=== PATIENT | female | born 1975 | race Caucasian/White ===

== ENCOUNTER → 2021-06-01 13:36 | Outpatient (CLI) | payer OTHER, SELFPAY | PROVIDERS: Visit Provider Nurse Practitioner | DX: Z20.822 Contact with and (suspected) exposure to COVID-19 (principal) ==

== ENCOUNTER 2022-07-27 05:05 | Emergency (ER) | payer OTHER, SELFPAY ==
--- NOTE | 2022-07-27 05:06 | ECG_ITS ---
APPROVED REPORT Exam: Resting ECG HR:119 bpm ECG Measurements Heart Rate 119 AXES CO 165 P 70 QRSd 88 QRS 64 QT 339 T 63 QTc 410 Conclusion SINUS TACHYCARDIA NONSPECIFIC ST & T-WAVE ABNORMALITY ABNORMAL RHYTHM ECG UNCONFIRMED REPORT Electronically signed by : Perry Schneider MD 07/27/2022 17:19:05
[2022-07-27 05:11] VITALS: BP 172/93; PULSE 120; RESP 18; TEMP 36.9; O2SAT 98; BMI 40.5
[2022-07-27 05:12] VITALS: BMI 40.5
--- NOTE | 2022-07-27 05:12 | XR_ITS ---
PROCEDURE INFORMATION: Exam: XR Chest Exam date and time: 07/27/2022 5:12 AM Age: 47 years old Clinical indication: Other: Tachycardia; Additional info: Heart racing TECHNIQUE: Imaging protocol: Radiologic exam of the chest. Views: 2 views. COMPARISON: No relevant prior studies available. FINDINGS: Lungs: Mild interstitial prominence and chronic granulomatous disease. No acute infiltrate. Pleural spaces: No pleural effusion. Heart/Mediastinum: Normal configuration of the heart. Bones/joints: Mild degenerative change. IMPRESSION: Mild interstitial prominence and chronic granulomatous disease.
[2022-07-27 05:25] LABS: Microscopic, Urine URINE MICROSCOPIC (MICROSCOPIC)
[2022-07-27 05:27] LABS: Basophils # 0.1 K/mm3 (0-0.2); Basophils % 0.7 % (0.1-2.0); Eosinophils # 0.4 K/mm3 (0.0-0.4); Eosinophils % 2.9 % (0.1-12.0); Hematocrit 29.9 % (37.0-47.0); Hemoglobin 9.9 g/dL (12.2-16.2); Lymphocytes # 4.5 K/mm3 (0.7-4.5); Lymphocytes % 37.1 % (10-50); Mean Corpuscular HGB Conc 33.2 g/dL (31.8-35.4); Mean Corpuscular Hemoglobin 29.4 pg (27.0-31.2); Mean Corpuscular Volume 88.7 fl (81-99); Mean Platelet Volume 7.9 fl (7.4-10.4); Monocytes # 0.7 K/mm3 (0.1-1.0); Monocytes % 6.1 % (1.7-9.3); Neutrophils # 6.4 K/mm3 (1.8-7.8); Neutrophils % 53.2 % (37.0-80.0); Platelet Count 384 K/mm3 (142-424); Red Blood Count 3.38 M/mm3 (4.20-5.40); Red Cell Distribution Width 15.7 % (11.5-17.5); White Blood Count 12.1 K/mm3 (4.8-10.8)
[2022-07-27 05:28] LABS: Bilirubin,Urine Negative (Negative); Blood, Urine 2+ (Negative); Color,Urine YELLOW (Yellow); Glucose,Urine (UA) Negative (Negative); Ketones,Urine Negative (Negative); Leukocyte Esterase,Urine Negative (Negative); Nitrate,Urine Negative (Negative); PH,Urine 6.5 (5.0-8.5); Protein,Urine TRACE (Negative); Urobilinogen,Urine 0.2 EU/dl (0.2)
[2022-07-27 05:29] LABS: Appearance,Urine Slightly Cloudy (Clear)
[2022-07-27 05:30] VITALS: BP 142/80; PULSE 103; RESP 17; O2SAT 99
[2022-07-27 05:38] LABS: Alanine Aminotransferase 26 U/L (12-78); Albumin/Globulin Ratio 1.4 (1.1-1.8); Alkaline Phosphatase 95 U/L (38-126); Anion Gap 12.2 mEq/L (5-15); Aspartate Amino Transferase 27 U/L (14-36); Bilirubin,Total 0.4 mg/dl (0.2-1.3); Blood Urea Nitrogen 13 mg/dl (7-17); Calcium 8.2 mg/dl (8.4-10.2); Carbon Dioxide 27 mmol/L (22.0-30.0); Chloride 100 mmol/L (98-107); Creatinine Clearance Estimated 200 mL/min (50-200); Estimated Glomerular Filt Rate 108 ml/min (>60); GFR (African American) 131 ML/MIN (>60); Globulin 2.9 g/dL (1.3-3.2); Glucose 124 mg/dl (74-100); Potassium 3.2 mmoL/L (3.5-5.1); Sodium 136 mmol/L (136-145); Total Protein,Serum 6.9 g/dl (6.3-8.2)
[2022-07-27 05:38] LABS: Urine Pregnancy, HCG Qual. Negative (Negative)
[2022-07-27 05:42] LABS: Amorphous Sediment,Urine 1+ /lpf; Bacteria,Urine 1+ /lpf; WBC,Urine Occasional #/hpf (0-3)
[2022-07-27 05:55] LABS: Free T4 (Free Thyroxine) 1.25 ng/dl (0.78-2.19)
[2022-07-27 06:00] VITALS: BP 128/64; PULSE 93; RESP 14; O2SAT 97
[2022-07-27 06:10] LABS: Thyroid Stimulating Hormone 2.78 uIU/mL (0.465-4.68)
[2022-07-27 06:19] LABS: Troponin I < 0.01 ng/ml (0.00-0.034)
--- NOTE | 2022-07-27 06:23 | HMH.EDARPALP ---
Discharge Plan Disposition Patient Disposition: Home, Self-Care Prescriptions Prescriptions: New metoprolol succinate 25 mg tablet extended release 24 hr 25 mg PO DAILY Qty: 30 0RF No Action multivitamin Tablet 1 tab PO DAILY Referrals Follow up/Referrals: Provider,MD Sherly [Primary Care Provider] - See instructions Joseph Boone MD [Staff Physician] - See instructions Clinical Impressions Clinical Impression: Sinus tachycardia, Anemia Discharge ED Provider: Johnathan (ED)Chris Arrhythmia/Palpitations HPI General Chief Complaint: Arrhythmia/Palpitations Stated Complaint: heart racing Time Seen by Provider: 07/27/22 05:20 Mode of Arrival: Ambulatory Source of Information: Patient, Spouse and Medical Record Limitations: No Limitations History of Present Illness HPI narrative: pt with fast hr over the last day w/o chest pain ,syncope and no known medical problems complaint: rapid heart beat Onset (ago): day(s) Duration: intermittent Severity: moderate Associated symptoms: denies other symptoms Related Data Home Medications Medication Instructions Recorded Confirmed multivitamin 1 tab PO DAILY Supplement 07/27/22 07/27/22 Previous Rx's Medication Instructions Recorded metoprolol succinate 25 mg 25 mg PO DAILY #30 tabs 07/27/22 tablet,extended release 24 hr Allergies Allergy/AdvReac Type Severity Reaction Status Date / Time CODEINE Allergy Unknown PT STATES Uncoded 04/30/17 14:32 JUST DOES NOT REMEMBER THINGS [facility] Disclaimer: The information contained in this section may have been updated after the patient was seen, as this information can be updated by other users. Social History Smoking Status: Never smoker alcohol intake: never current occupational status: employed Travel in the last 8 weeks: None ROS Obtained: Yes All systems reviewed & no additional complaints except as documented Physical Exam General General appearance: alert and obese Head Head exam: normocephalic Eye Eye exam: Present PERRL and EOMI; Absent scleral icterus ENT ENT exam: Present mucous membranes moist Neck Neck exam: Present trachea midline Respiratory Respiratory exam: Absent respiratory distress Cardiovascular Cardiovascular exam: Present tachycardia Abdominal Exam Abdominal exam: Present soft Extremities Exam Extremities exam: Absent tenderness Neurological Exam Neurological exam: Present alert, oriented X3 and CN II-XII intact; Absent motor sensory deficit Psychiatric Psychiatric exam: Present normal affect Skin Skin exam: Absent rash Medical Decision Making Medical Records Medical records reviewed: Yes I reviewed the patient's medical records. Denilson Inquiry Pt receiving controlled substance: No Vital Signs: 07/27/22 05:11 07/27/22 05:30 07/27/22 06:00 Temperature 98.5 F Temperature Source Oral Pulse Rate 103 H 93 H Pulse Rate [Apical] 120 H Respiratory Rate 18 17 14 Blood Pressure 142/80 H 128/64 Blood Pressure [Right Arm] 172/93 H Blood Pressure Mean [Right Arm] 119 Blood Pressure Source [Right Arm] Automatic Cuff Blood Pressure Position [Right Arm] Sitting 02 Sat by Pulse Oximetry 98 99 97 Oxygen Delivery Method Room Air Room Air Room Air Lab Data Lab results reviewed: Yes I reviewed the patient's lab results. Lab Results 07/27/22 05:05: Urine Color Yellow, Urine Appearance Slightly cloudy, Urine pH 6.5, Ur Specific [place] 1.020, Urine Protein Trace, Urine Glucose (UA) Negative, Urine Ketones Negative, Urine Blood 2+, Urine Nitrate Negative, Urine Bilirubin Negative, Urine Urobilinogen 0.2, Ur Leukocyte Esterase Negative, Urine RBC 3-5, Urine WBC Occasional, Amorphous Sediment 1+, Urine Bacteria 1+ 07/27/22 05:05: Urine HCG, Qual Negative 07/27/22 05:15: WBC 12.1 H, RBC 3.38 L, Hgb 9.9 L, Hct 29.9 L, MCV 88.7, MCH 29.4, MCHC 33.2, RDW 15.7, Plt Count 384, MPV 7.9, Neut % (Auto) 53.2, Lym
[2022-07-27 06:30] VITALS: BP 150/81; PULSE 114; RESP 19; O2SAT 99
[2022-07-27 06:53] VITALS: BP 150/80; PULSE 110; RESP 18; TEMP 36.6; O2SAT 98
== END 2022-07-27 06:58 | disposition home or self-care (01) ==
PROVIDERS: Emergency Provider Emergency Medicine
DX: R00.2 Palpitations (principal)
CPT/HCPCS: 71046; 80053; 81001; 81025; 84439; 84443; 84484; 85025; 93005; 96361; 99284; 99285

== ENCOUNTER 2023-01-28 17:53 | Emergency (ER) | payer OTHER, SELFPAY ==
[2023-01-28 18:00] VITALS: BP 176/98; PULSE 82; RESP 18; TEMP 36.8; O2SAT 99; BMI 41.3
--- NOTE | 2023-01-28 18:06 | EXP.UTC ---
Discharge Plan Disposition Patient Disposition: Home, Self-Care Condition: Good Prescriptions Prescriptions: New ciprofloxacin HCl 0.3 % drops See Rx Instructions .ROUTE .COMPLEX Qty: 5 0RF Rx Instructions: put 1 drp in right eye every 2hr x2days; then 4 times/day x5days amoxicillin [amoxicillin] 875 mg tablet 875 mg PO Q12H Qty: 20 0RF No Action multivitamin Tablet 1 tab PO DAILY metoprolol succinate 25 mg tablet extended release 24 hr 25 mg PO DAILY Qty: 30 0RF Referrals Follow up/Referrals: Perry Schneider MD [Primary Care Provider] - See instructions Activity Restrictions/Add. Instructions Additional Instructions/Restrictions: Use the eye drop as directed. Strict hand washing in the house hold, because conjunctivitis is very contagious. Follow up with your regular doctor. GO TO THE ER FOR ANY WORSENING SYMPTOMS OR CONCERNS Clinical Impressions Clinical Impression: Conjunctivitis of right eye, Sinusitis Instructions Patient Instructions: How to Instill Eye Drops, Conjunctivitis, DI for Conjunctivitis Discharge ED Provider: Ron Garcia [facility] General Stated complaint: right eye infected Time Seen by Provider: 01/28/23 18:06 History of Present Illness Provider Complaint: She states that for the past 5 days she has had right eye irritation and drainage. She denies any injury or foreign body. She states that her vision is essentially normal in the eye. She denies eye pain too. Related Data Home Medications Medication Instructions Recorded Confirmed multivitamin 1 tab PO DAILY Supplement 07/27/22 07/27/22 Previous Rx's Medication Instructions Recorded metoprolol succinate 25 mg 25 mg PO DAILY #30 tabs 07/27/22 tablet,extended release 24 hr amoxicillin 875 mg tablet 875 mg PO Q12H #20 tabs 01/28/23 ciprofloxacin HCl 0.3 % eye drops See Rx Instructions ophthalmic 01/28/23 (eye) .COMPLEX #5 mL Allergies Allergy/AdvReac Type Severity Reaction Status Date / Time CODEINE Allergy Mild PT STATES Uncoded 01/28/23 18:31 JUST DOES NOT REMEMBER THINGS [facility] Disclaimer: The information contained in this section may have been updated after the patient was seen, as this information can be updated by other users. Social History Smoking Status: Never smoker alcohol intake: never current occupational status: employed Travel in the last 8 weeks: None ROS Obtained: Yes All systems reviewed & no additional complaints except as documented Constitutional Constitutional: Denies chills and Denies fever(s) Eyes Eyes: Reports as per HPI and Reports eye discharge ENT Ears, Nose, Mouth, and Throat: Denies dizziness, Denies otalgia, Reports nasal congestion, Reports nasal discharge and Reports sore throat Cardiovascular Cardiovascular: Denies chest pain Respiratory Respiratory: Denies shortness of breath, Denies chest congestion, Denies cough, Denies stridor and Denies wheezing Gastrointestinal Gastrointestingal: Denies nausea or vomiting Musculoskeletal Musculoskeletal: Reports system reviewed and no additional complaints, except as documented and Denies arthralgias Integumentary/Breasts Skin/Breast: Denies rash Neurologic Neurologic: Denies dizziness and Denies paresthesias Allergic/Immunologic Allergic/Immunologic: Denies wheezing Physical Exam General General appearance: alert and in no apparent distress Head Head exam: atraumatic, normocephalic and normal inspection Eye Eye exam: Present PERRL and EOMI Expanded Eye Exam Eyelids: left: normal inspection and right: erythema Pupils: Left: size (3mm), Right: size (3mm) and Bilateral: regular, round and reactive Sclera/Conjunctival: left: normal inspection and right: injection and exudate ENT ENT exam: Present normal exam, normal oropharynx, mucous membranes moist, TM's normal bilaterally and normal external ear exam
[2023-01-28 18:49] VITALS: BP 176/98; PULSE 82; RESP 18; TEMP 36.8; O2SAT 99
== END 2023-01-28 18:49 | disposition home or self-care (01) ==
PROVIDERS: Emergency Provider Nurse Practitioner Family; PCP Internal Medicine Adolescent Medicine
DX: H10.31 Unspecified acute conjunctivitis, right eye (principal)
CPT/HCPCS: 99204; 99212; G0463

== ENCOUNTER 2023-02-02 13:21 | Emergency (ER) | payer OTHER, SELFPAY ==
[2023-02-02 13:23] VITALS: BP 156/94; PULSE 104; RESP 18; TEMP 36.7; O2SAT 99; BMI 37.8
[2023-02-02 13:30] VITALS: BP 167/100; PULSE 102; RESP 20; O2SAT 98
[2023-02-02 14:01] VITALS: BP 141/80; PULSE 90; RESP 18; O2SAT 96
[2023-02-02 14:30] VITALS: BP 144/92; PULSE 98; RESP 20; O2SAT 96
--- NOTE | 2023-02-02 14:53 | PC.NURSE ---
Visual Acuity Both: 20/2 Left: 20/25 Right: 20/40
--- NOTE | 2023-02-02 14:57 | PC.NURSE ---
DR MANJARREZ AT BEDSIDE
[2023-02-02 15:01] VITALS: BP 149/78; PULSE 85; RESP 20; O2SAT 99
--- NOTE | 2023-02-02 15:04 | CT_ITS ---
PROCEDURE INFORMATION: Exam: CT Head Without Contrast Exam date and time: 02/02/2023 3:23 PM Age: 47 years old Clinical indication: Visual disturbance; Additional info: Right-sided visual disturbance TECHNIQUE: Imaging protocol: Computed tomography of the head without contrast. Radiation optimization: All CT scans at this facility use at least one of these dose optimization techniques: automated exposure control; mA and/or kV adjustment per patient size (includes targeted exams where dose is matched to clinical indication); or iterative reconstruction. REPORTING DATA: Count of CT and Cardiac NM exams in prior 12 months: This patient has received 0 known CTs and 0 known cardiac nuclear medicine studies in the 12 months prior to the current study. COMPARISON: No relevant prior studies available. FINDINGS: Brain: Normal. No hemorrhage. No mass effect or midline shift. Cortical sulci and white matter are unremarkable for age. Cerebral ventricles: Unremarkable for age. Paranasal sinuses: Visualized sinuses are unremarkable. No fluid levels. Mastoid air cells: Visualized mastoid air cells are well aerated. Bones/joints: Unremarkable. No acute fracture. Soft tissues: Unremarkable. IMPRESSION: No acute intracranial abnormality.
--- NOTE | 2023-02-02 15:05 | HMH.EDEYEP ---
Discharge Plan Disposition Patient Disposition: Home, Self-Care Prescriptions Prescriptions: No Action multivitamin Tablet 1 tab PO DAILY metoprolol succinate 25 mg tablet extended release 24 hr 25 mg PO DAILY Qty: 30 0RF ciprofloxacin HCl 0.3 % drops See Rx Instructions .ROUTE .COMPLEX Qty: 5 0RF Rx Instructions: put 1 drp in right eye every 2hr x2days; then 4 times/day x5days amoxicillin [amoxicillin] 875 mg tablet 875 mg PO Q12H Qty: 20 0RF Referrals Follow up/Referrals: Perry Schneider MD [Primary Care Provider] - See instructions Activity Restrictions/Add. Instructions Additional Instructions/Restrictions: Follow-up with an occupational health and safety officer if your symptoms do not improve. Return to the emergency department if your symptoms worsen in any way. Your work-up in the emergency department today did not reveal any life-threatening or dangerous conditions. Please continue taking all medications as prescribed. Clinical Impressions Clinical Impression: Monocular visual disturbance Instructions Patient Instructions: DI for Eye Pain Discharge ED Provider: Janna Perry Eye Problem HPI General Chief complaint: Eye Problems Stated complaint: right eye vision problem Time Seen by Provider: 02/02/23 14:56 Mode of Arrival: Ambulatory Source of Information: Patient Limitations: No Limitations Description of Symptoms (Recalled from ER Triage Doc. by RN): PT REPORTS ONGOING RIGHT EYE PAIN, IRRITATION AND FLUID PT HAS BEEN EVALUATED BY RUST PROVIDER, RECEIVED ABX. PT HAS FOLLOWED UP WITH EYE DOCTOR TREATED WITH STERIODS. PT REPORTS FEELING BETTER FOR A FEW DAYS THEN SYMPTOMS RETURN History of Present Illness HPI Narrative: The patient presents to the emergency department complaining of right-sided eye discomfort and abnormal vision for the last 2 weeks. She has already been seen by a occupational health and safety officer as well as the urgent care center. She has been started on steroid drops as well as antibiotics. She says there is no improvement. The patient insists on having a CT of the head performed because she is worried about a stroke and has a lot of anxiety about it. Related Data Home Medications Medication Instructions Recorded Confirmed multivitamin 1 tab PO DAILY Supplement 07/27/22 07/27/22 Previous Rx's Medication Instructions Recorded metoprolol succinate 25 mg 25 mg PO DAILY #30 tabs 07/27/22 tablet,extended release 24 hr amoxicillin 875 mg tablet 875 mg PO Q12H #20 tabs 01/28/23 ciprofloxacin HCl 0.3 % eye drops See Rx Instructions ophthalmic 01/28/23 (eye) .COMPLEX #5 mL Allergies Allergy/AdvReac Type Severity Reaction Status Date / Time CODEINE Allergy Mild PT STATES Uncoded 01/28/23 18:31 JUST DOES NOT REMEMBER THINGS [facility] Disclaimer: The information contained in this section may have been updated after the patient was seen, as this information can be updated by other users. Social History Smoking Status: Never smoker alcohol intake: never current occupational status: employed Travel in the last 8 weeks: None ROS Obtained: Yes All systems reviewed & no additional complaints except as documented Physical Exam General General appearance: alert Head Head exam: atraumatic Eye Eye exam: Present normal appearance, PERRL, EOMI and other (Normal right-sided funduscopic exam) ENT ENT exam: Present normal exam Neck Neck exam: Present normal inspection and full ROM; Absent tenderness or meningismus Chest Chest inspection: Present normal inspection and symmetric chest wall rise; Absent tenderness Respiratory Respiratory exam: Present normal lung sounds bilaterally; Absent respiratory distress or accessory muscle use Cardiovascular Cardiovascular exam: Present regular rate, normal rhythm and normal heart sounds Abdominal Exam Abdominal exam: Present soft and normal bowel sounds; Abse
[2023-02-02 15:20] LABS: Urine Pregnancy, HCG Qual. Negative (Negative)
--- NOTE | 2023-02-02 15:42 | PC.NURSE ---
Rounded on pt. No needs voiced at this time. Call light remains within reach.
[2023-02-02 16:10] VITALS: BP 147/87; PULSE 83; RESP 17; TEMP 36.7; O2SAT 98
== END 2023-02-02 16:10 | disposition home or self-care (01) ==
PROVIDERS: Emergency Provider Emergency Medicine; PCP Internal Medicine Adolescent Medicine
DX: H53.9 Unspecified visual disturbance (principal)
CPT/HCPCS: 70450; 81025; 99284

== ENCOUNTER → 2023-02-12 15:52 | Outpatient (CLI) | payer OTHER, SELFPAY ==
[2023-02-12 16:34] LABS: Basophils % 0.2 % (0.1-2.0); Eosinophils # 0.1 K/mm3 (0.0-0.4); Eosinophils % 0.5 % (0.1-12.0); Hematocrit 37.6 % (37.0-47.0); Hemoglobin 11.9 g/dL (12.2-16.2); Lymphocytes # 2.4 K/mm3 (0.7-4.5); Lymphocytes % 21.9 % (10-50); Mean Corpuscular HGB Conc 31.5 g/dL (31.8-35.4); Mean Corpuscular Hemoglobin 28.6 pg (27.0-31.2); Mean Corpuscular Volume 90.7 fl (81-99); Mean Platelet Volume 7.5 fl (7.4-10.4); Monocytes # 0.5 K/mm3 (0.1-1.0); Monocytes % 4.9 % (1.7-9.3); Neutrophils # 7.8 K/mm3 (1.8-7.8); Neutrophils % 72.5 % (37.0-80.0); Platelet Count 399 K/mm3 (142-424); Red Blood Count 4.15 M/mm3 (4.20-5.40); Red Cell Distribution Width 14.1 % (11.5-17.5); White Blood Count 10.8 K/mm3 (4.8-10.8)
[2023-02-12 17:41] LABS: Erythrocyte Sedimentation Rate 31 mm/hr (0-20)
[2023-02-12 18:03] LABS: Chol/HDL Ratio 4.7 (1-3.5); Cholesterol 213 mg/dl (140-200); HDL Cholesterol 45 mg/dl (40-60); Triglycerides 219 mg/dl (30-150); VLDL Cholesterol 44 mg/dL (0-40)
[2023-02-12 18:13] LABS: Direct LDL Cholesterol 127.34 mg/dL (100-129)
[2023-02-14 16:37] LABS: C-Reactive Protein 4.7 mg/L (0-4)
== END ==
PROVIDERS: PCP Internal Medicine Adolescent Medicine; Visit Provider Family Medicine Addiction Medicine
DX: H47.011 Ischemic optic neuropathy, right eye (principal)
CPT/HCPCS: 36415; 80061; 85025; 85651; 86140

== ENCOUNTER 2023-09-28 08:08 | Emergency (ER) | payer OTHER, SELFPAY ==
[2023-09-28 08:15] VITALS: BP 159/88; PULSE 116; RESP 18; TEMP 37.4; O2SAT 96; BMI 42.7
--- NOTE | 2023-09-28 08:23 | ED_ITS ---
Discharge Plan Disposition Patient Disposition: Home, Self-Care Condition: Good Prescriptions Prescriptions: New amoxicillin 875 mg tablet 875 mg PO Q12H Qty: 20 0RF benzonatate 100 mg capsule 100 mg PO TIDP PRN (Reason: Cough) Qty: 30 0RF methylprednisolone 4 mg Tablets,Dose Pack 4 mg PO DIRECTED 6 Days Qty: 21 0RF Rx Instructions: Take 1 pack as directed for 6 days No Action multivitamin Tablet 1 tab PO DAILY metoprolol succinate 25 mg tablet extended release 24 hr 25 mg PO DAILY Qty: 30 0RF Referrals Follow up/Referrals: Perry Schneider MD [Primary Care Provider] - See instructions Activity Restrictions/Add. Instructions Additional Instructions/Restrictions: Drink plenty of fluids. Take tylenol or ibuprofen for pain or fever. Take the medications as directed. Follow up with your regular doctor. GO TO THE ER FOR ANY WORSENING SYMPTOMS Clinical Impressions Clinical Impression: Sinusitis Instructions Patient Instructions: Sinus Headache, DI for Sinusitis Discharge ED Provider: Ron Garcia [facility] General Stated complaint: sinus pressure, yellow drainage, cough Time Seen by Provider: 09/28/23 08:23 History of Present Illness Provider Complaint: She states that for the past 4 days she has had worsening sinus pressure, ear pain and sore throat. Related Data Home Medications Medication Instructions Recorded Confirmed multivitamin 1 tab PO DAILY Supplement 07/27/22 09/28/23 Previous Rx's Medication Instructions Recorded metoprolol succinate 25 mg 25 mg PO DAILY #30 tabs 07/27/22 tablet,extended release 24 hr amoxicillin 875 mg tablet 875 mg PO Q12H #20 tabs 09/28/23 benzonatate 100 mg capsule 100 mg PO TIDP PRN Cough #30 caps 09/28/23 methylprednisolone 4 mg tablets in 4 mg PO DIRECTED 6 days #21 tabs 09/28/23 a dose pack Allergies Allergy/AdvReac Type Severity Reaction Status Date / Time codeine Allergy Unknown Verified 09/28/23 08:26 allergy reaction [facility] Disclaimer: The information contained in this section may have been updated after the patient was seen, as this information can be updated by other users. Social History Smoking Status: Never smoker alcohol intake: never current occupational status: employed Travel in the last 8 weeks: None ROS Obtained: Yes All systems reviewed & no additional complaints except as documented Constitutional Constitutional: Reports poor appetite Eyes Eyes: Reports system reviewed and no additional complaints, except as documented ENT Ears, Nose, Mouth, and Throat: Reports as per HPI Cardiovascular Cardiovascular: Reports system reviewed and no additional complaints, except as documented and Denies chest pain Respiratory Respiratory: Denies shortness of breath, Denies chest congestion, Reports cough, Denies stridor and Denies wheezing Gastrointestinal Gastrointestingal: Reports system reviewed and no additional complaints, except as documented; Denies abdominal pain, diarrhea or vomiting Musculoskeletal Musculoskeletal: Reports system reviewed and no additional complaints, except as documented and Denies arthralgias Integumentary/Breasts Skin/Breast: Reports system reviewed and no additional complaints, except as documented and Denies rash Neurologic Neurologic: Denies paresthesias Allergic/Immunologic Allergic/Immunologic: Denies wheezing Physical Exam General General appearance: alert and in no apparent distress Eye Eye exam: Present normal appearance, PERRL and EOMI ENT ENT exam: Present mucous membranes moist and normal external ear exam Expanded ENT Exam External ear exam: Present normal external inspection TM/Canal exam: Bilateral TM: erythema and bulging Nose exam: Absent sinus tenderness Nasal speculum exam: Bilateral: normal Mouth exam: Present normal external inspection; Absent drooling Teeth exam: Present normal inspection Throat exam: Present tonsillar erythema and tonsillomegaly Neck Neck exam: Present normal inspection, full ROM and trachea midline; Absent tenderness, lymphadenopathy or thyromegaly Chest Chest inspection: Present normal inspection and symmetric chest wall rise; Absent tenderness or rash Respiratory Respiratory exam: Present normal lung sounds bilaterally; Absent respiratory distress, wheezes, stridor or accessory muscle use Cardiovascular Cardiovascular exam: Present regular rate, normal rhythm and normal heart sounds Abdominal Exam Abdominal exam: Present soft; Absent distention, tenderness, guarding, rebound or rigidity Extremities Exam Extremities exam: Present normal inspection, full ROM and normal capillary refill; Absent tenderness or calf tenderness Back Exam Back exam: Present normal inspection and full ROM; Absent tenderness Neurological Exam Neurological exam: Present alert and oriented X3 Psychiatric Psychiatric exam: Present normal affect and normal mood Skin Skin exam: Present warm, dry, intact and normal color Lymphatic Lymphatic Findings: no adenopathy Medical Decision Making Medical Records Medical records reviewed: No I reviewed the patient's medical records. Denilson Inquiry Pt receiving controlled substance: No Lab Data Lab results reviewed: Yes I reviewed the patient's lab results.
[2023-09-28 09:04] VITALS: BP 159/88; PULSE 116; RESP 18; TEMP 37.4; O2SAT 96
== END 2023-09-28 09:04 | disposition home or self-care (01) ==
PROVIDERS: Emergency Provider Nurse Practitioner Family; PCP Internal Medicine Adolescent Medicine
DX: J01.90 Acute sinusitis, unspecified (principal); H92.03 Otalgia, bilateral; R07.0 Pain in throat
CPT/HCPCS: 99212; 99214; G0463